=== PATIENT | female | born 1970 | race American Indian/Alaskan Native ===

== ENCOUNTER 2017-02-03 13:55 | Outpatient (CLI) | payer MEDICARE, OTHER ==
--- NOTE | 2017-02-04 08:34 | Mammography Report ---
BILATERAL DIGITAL SCREENING MAMMOGRAM : 02/03/17 13:55:00 CLINICAL: Routine screening. COMPARISON:02/15/16 FINDINGS: The breasts are heterogeneously dense, which may obscures small masses. A new right upper irregular focal asymmetry measures approximately 6 cm in maximum dimension. 2 groups of calcifications in the upper-outer right breast has suspicious morphology and require additional imaging. The calcifications are approximately 6-7 cm apart on both views. In addition, a suspicious right axillary lymph node is very dense and measures at least 3.7 cm. The left breast is negative. IMPRESSION: A large right focal asymmetry with suspicious calcifications requiring further workup. BI-RADS CATEGORY: 0 -- Additional Imaging Evaluation Required RECOMMENDATION: Recall for right ML and spot magnification CC and ML views and right breast ultrasound. ACR BI-RADS MAMMOGRAPHIC CODES: 0 = Needs additional imaging evaluation; 1 = Negative; 2 = Benign; 3 = Probably benign; 4 = Suspicious; 5 = Malignant; 6 = Known biopsy-proven malignancy COMMENT: 1. Dense breast tissue, i.e., adenosis, fibrocystic changes, etc., may obscure an underlying neoplasm. 2. Approximately 10% of cancers are not detected with mammography. 3. A negative mammography report should not delay biopsy if a clinically suspicious mass is present. COMMENT: Patient follow-up letters are generated via our [employer] application.
== END 2017-02-03 13:56 | disposition home or self-care (01) ==
LOC: MAMMO 13:55
PROVIDERS: ATTEND Family Medicine Adult Medicine
DX: Z12.31 Encounter for screening mammogram for malignant neoplasm of breast (principal); I12.0 Hypertensive chronic kidney disease with stage 5 chronic kidney disease or end stage renal disease; N18.6 End stage renal disease; D64.9 Anemia, unspecified
CPT/HCPCS: 77067; G0202

== ENCOUNTER 2017-02-10 12:24 | Outpatient (CLI) | payer MEDICARE ==
--- NOTE | 2017-02-10 14:44 | Mammography Report ---
Right mammogram and right breast ultrasound: CC and MLO spot magnification views of the upper-outer breast are performed. 2 areas of pleomorphic calcifications are noted. There are a few scattered other calcifications having less suspicious characteristics. The fibroglandular pattern otherwise appears generally dense but no definable mass or architectural distortion. Ultrasound of the superior breast demonstrates several findings. In the 1:00 the position 6 in meters from the nipple there is a circumscribed somewhat irregular contoured hypoechogenicity measure approximately 9 mm in size. 9 cm on the breast is another irregular hypoechogenicity which is slightly less well-circumscribed measuring 13 mm. The overall tissue characteristics in the upper-outer breast are somewhat heterogeneous with scattered low attenuation densities. This does not appear to represent normal tissue. In the 12:00 location corresponding to the dense mass on the mammogram approximately 13 cm from the nipple there is a well-circumscribed and homogeneously hypoechoic mass measuring 3.5 cm. There is internal flow. Imaging of the axilla demonstrates 3 adjacent hypoechogenic masses. The 2 smaller masses measuring 13 and 22 mm in size no obvious hilum but the more medial mass measuring 3.2 cm appears to have a normal architectural structure. Impressions: 1. The mammographic findings are highly suspicious for both abnormal parenchymal tissue as well as pleomorphic calcifications. 2. Multiple suspicious focal breast masses. 3. Markedly enlarged and suspicious axillary tail mass and to suspicious a third lymph nodes. Recommendation: Biopsy of breast nodule 9 cm from the nipple in the 1 o'clock location; biopsy of axillary tail mass; biopsy of one suspicious axillary lymph node. An MRI scan may avoid the need for multiple biopsies. The patient has been informed of the findings and recommendations and instructed to contact you. BI-RADS CATEGORY: 5 = Malignant ACR BI-RADS MAMMOGRAPHIC CODES: 0 = Needs additional imaging evaluation; 1 = Negative; 2 = Benign; 3 = Probably benign; 4 = Suspicious; 5 = Malignant; 6 = Known biopsy-proven malignancy COMMENT: 1. Dense breast tissue, i.e., adenosis, fibrocystic changes, etc., may obscure an underlying neoplasm. 2. Approximately 10% of cancers are not detected with mammography. 3. A negative mammography report should not delay biopsy if a clinically suspicious mass is present.
== END 2017-02-10 12:25 | disposition home or self-care (01) ==
LOC: MAMMO 12:24
PROVIDERS: ATTEND Family Medicine Adult Medicine
DX: N63 Unspecified lump in breast (principal); R92.1 Mammographic calcification found on diagnostic imaging of breast; I12.0 Hypertensive chronic kidney disease with stage 5 chronic kidney disease or end stage renal disease; N18.6 End stage renal disease; D63.1 Anemia in chronic kidney disease
CPT/HCPCS: 76641; G0206

== ENCOUNTER 2017-03-09 08:03 | Outpatient (CLI) | payer MEDICARE ==
--- NOTE | 2017-03-09 14:10 | Mammography Report ---
Stereotactic biopsy of the right breast x2 with specimen radiograph x2. History: Known right breast cancer with 2 additional suspicious lesions seen on recent workup. Procedure and findings: Initially the more posterior of 2 groupings of microcalcifications were localized using stereotactic images. Pre-and post-fire images were obtained. Subsequently, local anesthetic was injected into the skin. Using a 13-gauge vacuum assisted biopsy device, 6 specimens were obtained. The specimen radiograph demonstrated order entry representative microcalcifications in multiple tissue cores. Subsequently, the same procedure was performed in the more anterior of the 2 areas of calcifications. Adequate tissue cores were obtained and the specimen radiograph also demonstrates order entry representative microcalcifications in multiple tissue cores. A biopsy clip was placed in the breast at the site of the each biopsy. The patient tolerated the procedure well clinically. Hemostasis was accomplished by direct compression, and a pressure dressing was placed. The patient was discharged in satisfactory condition with no evidence of breast hematoma.
--- NOTE | 2017-03-09 14:12 | Mammography Report ---
Postbiopsy right mammogram for clip placement x2. Findings: 2 views of the right breast demonstrate concordant placement of 2 different biopsy clips both anterior and posteriorly in the left breast. These are located lateral to a previously placed biopsy clip from a previous ultrasound guided biopsy. Incidental note is made of marked skin thickening which has developed since the previous mammogram on February 17.
== END 2017-03-09 08:04 | disposition home or self-care (01) ==
LOC: SPVWC 08:03
PROVIDERS: ATTEND Surgery
DX: C50.411 Malignant neoplasm of upper-outer quadrant of right female breast (principal); R92.1 Mammographic calcification found on diagnostic imaging of breast
CPT/HCPCS: 19081; 19082; 88305; A4648; G0206; 88361

== ENCOUNTER 2017-03-10 07:47 | Outpatient (CLI) | payer MEDICARE ==
--- NOTE | 2017-03-11 08:20 | PET Report ---
PET/CT:03/10/17 07:47:00 CLINICAL: Breast cancer initial staging. RADIOPHARMACEUTICAL: 13.6mCi F18-FDG. COMPARISON: None. TECHNIQUE- Following intravenous injection of F-18 FDG and an approximately 60 minute uptake period, CT and PET images from the mid skull to the upper thighs were acquired with the patient in the fasted state. No contrast was administered. The CT protocol used for this PET CT study is designed for attenuation correction and anatomic localization of PET abnormalities. This refueling ramp attendant CT is not desired to produce and cannot replace, aslac-el-yth-art diagnostic CT scans with specific imaging protocols for different body parts and indications. Plasma glucose at the time of this test: 111g/dl. The standardized uptake values (SUV) are normalized to patient body weight and indicate the highest activity concentration (SUV max) in a given disease site. FINDINGS: Brain--Physiologic FDG uptake in the visualized regions of the brain. Neck--Physiologic FDG uptake . Chest--Physiologic FDG uptake in mediastinal blood pool and myocardium. An FDG avid right breast mass measures approximately 5.0 x 3.5 x 3.5 cm with SUV 7.8. Three biopsy clips in the right breast. Moderate minimally FDG avid (SUV 2.9) skin thickening of the right breast. Lungs--No abnormal uptake. No pulmonary nodule or mass. Pleura/pericardium--No abnormal uptake. Thoracic nodes--FDG avid right axillary lymphadenopathy with at least six enlarged right axillary lymph nodes. A level I lymph node contains a biopsy clip and measures 4.0 x 3.2 cm with SUV 10.8. Hepatobiliary--No abnormal uptake. Liver background SUV mean, as a reference for comparing FDG studies, is 4.8 . No liver mass. Spleen--No abnormal uptake. Pancreas--No abnormal uptake. Adrenal Glands--No abnormal uptake. Kidneys/Ureters/Bladder--No abnormal uptake. Abdominopelvic Nodes--No abnormal uptake. Bowel/Peritoneum/Mesentery--No abnormal uptake. Pelvic organs--No abnormal uptake. Bones/Soft Tissues--Diffuse FDG uptake consistent with marrow stimulation. No suspicious bone lesions. Other findings: Peritoneal dialysis catheter and a large volume of intraperitoneal dialysate. IMPRESSION- 1. Multicentric right breast cancer with right axillary lorena metastasis. 2. No evidence of pulmonary, hepatic or skeletal metastasis.
== END 2017-03-10 07:48 | disposition home or self-care (01) ==
LOC: PET 07:47
PROVIDERS: ATTEND Surgery
DX: C79.89 Secondary malignant neoplasm of other specified sites (principal); C50.411 Malignant neoplasm of upper-outer quadrant of right female breast; I12.0 Hypertensive chronic kidney disease with stage 5 chronic kidney disease or end stage renal disease; N18.6 End stage renal disease; D63.1 Anemia in chronic kidney disease; Z99.2 Dependence on renal dialysis; Z79.899 Other long term (current) drug therapy
CPT/HCPCS: 78815; 82962; A9552

== ENCOUNTER 2017-07-19 09:26 | Outpatient (CLI) | payer MEDICARE ==
--- NOTE | 2017-07-19 11:58 | Mammography Report ---
RIGHT DIGITAL DIAGNOSTIC MAMMOGRAM with CAD: 07/19/17 09:26:00 CLINICAL: Right breast cancer status post chemotherapy. COMPARISON:03/09/17 FINDINGS: Three biopsy clips in the upper outer quadrant corresponds to known cancer. Subtle residual irregular asymmetry in the area of the clips on the lateral view measures approximately 7 x 4 cm but minimal asymmetry remains on the CC view. Malignant calcifications are unchanged compared to the prior exam. IMPRESSION: Partial response to chemotherapy. BI-RADS CATEGORY: 6--Known Cancer ACR BI-RADS MAMMOGRAPHIC CODES: 0 = Needs additional imaging evaluation; 1 = Negative; 2 = Benign; 3 = Probably benign; 4 = Suspicious; 5 = Malignant; 6 = Known biopsy-proven malignancy COMMENT: 1. Dense breast tissue, i.e., adenosis, fibrocystic changes, etc., may obscure an underlying neoplasm. 2. Approximately 10% of cancers are not detected with mammography. 3. A negative mammography report should not delay biopsy if a clinically suspicious mass is present. COMMENT: Patient follow-up letters are generated by our [employer] application.
== END 2017-07-19 09:27 | disposition home or self-care (01) ==
LOC: SPVWC 09:26
PROVIDERS: ATTEND Surgery
DX: C50.411 Malignant neoplasm of upper-outer quadrant of right female breast (principal)
CPT/HCPCS: G0206-RT

== ENCOUNTER 2017-07-27 05:59 | Observation (INO) | payer MEDICARE, OTHER ==
[2017-07-27] MEDS ORDERED: NACL BACTERIOSTATIC INFILTRATI ONE (06:47)
[2017-07-27] MEDS ORDERED: PEPCID PO NR (07:00)
[2017-07-27] MEDS ORDERED: NACL 0.9% 1000 ML 1,000 ML IV SCH (07:00)
[2017-07-27] MEDS ORDERED: NEURONTIN PO NR (07:00)
[2017-07-27] MEDS ORDERED: VERSED IV NR (07:00)
[2017-07-27 07:15] LABS: Basophils % (Auto) 0.9 % (0.0-1.8); Eosinophils % (Auto) 4.4 % (0.0-4.3); Hematocrit 33.5 % (30.3-42.9); Mean Corpuscular HGB Conc 33 % (30-34); Mean Corpuscular Hemoglobin 30 pg (28-32); Mean Corpuscular Volume 92 fl (79-97); Platelet Count 263 K/mm3 (140-440); Red Blood Count 3.63 M/mm3 (3.65-5.03); Red Cell Distribution Width 15.3 % (13.2-15.2); White Blood Count 6.3 K/mm3 (4.5-11.0)
--- NOTE | 2017-07-27 07:15 | Anesthesia Consultation ---
Anesthesia Consult and Med Hx Date of service: 07/27/17 - Airway Anesthetic Teeth Evaluation: Good ROM Head & Neck: Adequate Mental/Hyoid Distance: Adequate Mallampati Class: Class II Intubation Access Assessment: Probably Good - Pulmonary Exam CTA: Yes - Cardiac Exam Cardiac Exam: RRR - Pre-Operative Health Status ASA Pre-Surgery Classification: ASA4 Proposed Anesthetic Plan: General Nerve Block: PEC - Pulmonary Hx Smoking: No Hx Sleep Apnea: Yes (NO LONGER USES CPAP) - Cardiovascular System Hx Hypertension: Yes - Central Nervous System CVA: No Hx Psychiatric Problems: No - Gastrointestinal Hx Gastroesophageal Reflux Disease: Yes - Endocrine Hx Renal Disease: Yes (Polycystic ) Hx End Stage Renal Disease: Yes Hx Liver Disease: No Hx Insulin Dependent Diabetes: No - Hematic Hx Anemia: Yes Hx Sickle Cell Disease: Yes (TRAIT) - Other Systems Hx Alcohol Use: No Hx Substance Use: No Hx Cancer: Yes (breast)
--- NOTE | 2017-07-27 07:16 | Anesthesia Day of Surgery ---
Anesthesia Day of Surgery - Day of Surgery Patient Examined: Yes Patient H&P Reviewed: Yes Patient is NPO: Yes
[2017-07-27] MEDS ORDERED: CLONIDINE 1,000 MCG/10 ML VIAL EP ONE (07:24)
[2017-07-27] MEDS ORDERED: MARCAINE 0.5% 30 ML INFILTRATI ONE (07:24)
[2017-07-27] MEDS ORDERED: DECADRON ONE ×2 (07:24→11:05)
[2017-07-27] MEDS ORDERED: DIPRIVAN 10 MG/ML IV ONE (07:28)
[2017-07-27] MEDS ORDERED: XYLOCAINE MPF 2% ONE (07:29)
[2017-07-27] MEDS ORDERED: DILAUDID ONE (07:29)
[2017-07-27] MEDS ORDERED: ZEMURON IV ONE (07:29)
[2017-07-27 07:35] LABS: Calcium 9.6 mg/dL (8.4-10.2); Chloride 95.4 mmol/L (98-107); Potassium 3.4 mmol/L (3.6-5.0)
[2017-07-27] MEDS ORDERED: SUBLIMAZE IV ONE (08:00)
[2017-07-27] MEDS ORDERED: ANCEF/STERILE WATER 2 GM/20 ML IV NR (08:00)
[2017-07-27] MEDS ORDERED: ANCEF IV ONE (09:26)
[2017-07-27] MEDS ORDERED: WATER FOR IRRIG STERILE IR ONE (09:26)
[2017-07-27] MEDS ORDERED: BACITRACIN IR ONE (09:26)
[2017-07-27] MEDS ORDERED: NEO SYNEPHRINE/NS Syringe(OR USE) IV ONE ×2 (09:51→10:22)
[2017-07-27] MEDS ORDERED: ePHEDrine SULFATE ONE (09:58)
[2017-07-27] MEDS ORDERED: ZOFRAN ONE (11:05)
[2017-07-27] MEDS ORDERED: BACITRACIN ONE (11:09)
[2017-07-27] MEDS ORDERED: NACL 0.9% 1000 ML 1,000 ML ONE ×2 (11:41→13:50)
--- NOTE | 2017-07-27 12:12 | Short Stay Summary ---
Short Stay Documentation Date of service: 07/27/17 - History H&P: obtained from office - Allergies and Medications Current Medications: Allergies No Known Allergies Allergy (Verified 07/21/17 11:24) Home Medications Medication Instructions Recorded Confirmed Last Taken Type Cinacalcet [Sensipar] 30 mg PO TID 06/10/14 07/16/14 07/24/17 History Omeprazole 20 mg PO DAILY 06/10/14 07/16/14 07/24/17 History Sevelamer Carbonate [Renvela] 800 mg PO DAILY 06/10/14 07/16/14 07/26/17 History Zolpidem [Ambien] 1 tab PO QHS 06/10/14 07/16/14 07/26/17 History Calcitriol [Rocaltrol] 0.5 mcg PO DAILY 07/21/17 07/27/17 07/26/17 History Ergocalciferol [Vitamin D2] 1 cap PO QWEEK 07/21/17 07/27/17 07/13/17 History Gabapentin [Neurontin] 100 mg PO TID 07/21/17 07/27/17 07/20/17 History Hydrocodon-Acetaminophn 10-325 1 tab PO Q8H PRN 07/21/17 07/27/17 07/20/17 History Active Medications Cefazolin Sodium (Ancef/Sterile Water 2 Gm/20 Ml) 2 gm IV PREOP NR Stop: 07/27/17 23:59 Sodium Chloride (Nacl 0.9% 1000 Ml) 1,000 mls @ 100 mls/hr IV DIRECT BERTO Last Admin: 07/27/17 07:00 Dose: 100 mls/hr Midazolam HCl (Versed) 2 mg IV PREOP NR Stop: 07/27/17 23:59 Last Admin: 07/27/17 07:34 Dose: 2 mg - Brief post op/procedure progress note Date of procedure: 07/27/17 Pre-op diagnosis: Multicentric right breast cancer Post-op diagnosis: same Procedure: Left total mastectomy and right total mastectomy with SLNB Anesthesia: GETA Findings: Left total mastectomy; right total mastectomy with radiograph specimen with 3 clips present and 3 SLNs and negative for malignancy Surgeon: NICO MUNOZ Gauge Controller: FER JAMA Estimated blood loss: minimal Pathology: list (bilateral total mastectomy and right SLNB) Specimen disposition: to lab Condition: stable - Disposition Condition at discharge: Good Disposition: DC/TX-02 SHRT-TRM GEN HOSP IP Short Stay Discharge Plan Activity: other (no heavy lifting) Diet: diabetic Wound: other (keep incision clean and dry; may shower in 72 hours; no baths, pools or lakes) Follow up with: RYLIE BOWERS MD [Primary Care Provider] - 7 Days NICO MUNOZ MD [Staff Physician] - 7 Days
[2017-07-27] MEDS ORDERED: ROBINUL ONE (12:16)
[2017-07-27] MEDS ORDERED: QUELICIN ONE (12:16)
--- NOTE | 2017-07-27 12:21 | Operative Report ---
Operative Report Operative Report: Date of Service: July 27, 2017 Preoperative diagnosis: Multicentric right breast cancer of the upper outer and upper inner quadrant Postoperative diagnosis: Same Procedure: Left total mastectomy and right total mastectomy with sentinel lymph node biopsy Surgeon: Dyana Mckinley M.D. Asst.: Felisha Reilly MD Anesthesia: Gen. Findings: Three right breast clips and mass present within right total mastectomy. 3 sentinel lymph nodes identified and negative for malignancy on frozen section of pathology Complications: None Drains: 2 19 Fr Estimated blood loss: Minimal Disposition: PACU in good condition Indications for operative procedure: This is a 46-year-old lady with multicentric Stage II right breast cancer of the upper outer and upper inner quadrant, IDCA [id number] triple negative. Recommendations were to proceed with right mastectomy and patient wished to proceed with a right total mastectomy and prophylactic left total masectomy and immediate plastic reconstructive surgery of bilateral tissue expanders by Dr. Adkins. Procedure in detail: Anesthesia placed right pectoral muscle block prior to going to the operating room. The patient was taken to the operating room and was placed supine. Gen. anesthesia was administered. The right nipple was injected with radioisotope. Bilateral breast were prepped and draped in the normal postoperative fashion. Timeout was performed. Typical mastectomy incision markings were made . Attention was taken towards the left breast first. A skin incision was made with a 10 blade knife and dissection taken down to the subcutaneous tissues. First began raising of the superior flap to the level of the clavicle superiorly and posteriorly to the pectoralis muscle. Followed by raising of the medial flap to the level of the sternum and posteriorly to the pectoralis muscle. Followed by raising of the lateral flap to the level of the latissimus dorsi muscle and taken down posteriorly. Followed by raising of the inferior flap to the level of the inframammary fold taken posterior to the pectoralis muscle. The mastectomy/breast was removed from the pectoralis muscle without incident. The specimen was appropriately marked and sent to pathology. Hemostasis was obtained with the bovie cautery. Dr. Adkins then proceeded with tissue quill winder placement. Attention was taken towards the right breast. A gamma probe was inserted into the axilla to identify the sentinel lymph node location. A skin incision was made with a 10 blade knife and dissection taken down to the subcutaneous tissues. First began raising of the superior flap to the level of the clavicle superiorly and posteriorly to the pectoralis muscle. The port was noted and not encountered. Followed by raising of the medial flap to the level of the sternum and posteriorly to the pectoralis muscle. Followed by raising of the lateral flap to the level of the latissimus dorsi muscle and taken down posteriorly. The gamma probe was inserted into the axilla and 3 sentinel lymph nodes were identified, all remaining counts were less than 10% of the highest SLN. Lymph nodes were sent to pathology with findings negative for malignancy noted on frozen section and first SLN with reactive treatment effect. Then proceeded with raising of the inferior flap to the level of the inframammary fold taken posterior to the pectoralis muscle. The mastectomy/breast was removed from the pectoralis muscle without incident. The specimen was appropriately marked and sent to radiology with findings of 3 breast clips present and sent to pathology. Hemostasis was obtained with the bovie cautery. Dr. Adkins then proceeded with tissue quill winder placement.
[2017-07-27] MEDS ORDERED: SODIUM CHLORIDE FLUSH SYRINGE 10 ML IV PRN (12:22)
[2017-07-27] MEDS ORDERED: BENADRYL PO PRN (12:22)
[2017-07-27] MEDS ORDERED: PERCOCET 5/325 PO PRN (12:22)
[2017-07-27] MEDS ORDERED: ZOFRAN IV PRN (12:22)
[2017-07-27] MEDS ORDERED: REGLAN PO PRN (12:22)
[2017-07-27] MEDS ORDERED: TYLENOL PO PRN (12:22)
--- NOTE | 2017-07-27 12:32 | Operative Report ---
PREOPERATIVE DIAGNOSES: 1. Right breast cancer. 2. Status post bilateral mastectomies. POSTOPERATIVE DIAGNOSES: 1. Right breast cancer. 2. Status post bilateral mastectomies. PROCEDURE: Bilateral tissue office support clerk breast reconstruction. SURGEON: Miles Adkins M.D. TOY ELECTRIC TRAIN REPAIRER: Dr. Dyana Mckinley and Dr. Solano. FINDINGS: Implants are [place] 600 mL high profile Artura implants, serial number [id number] and [id number], reference number TEXP 140RH. Implants filled intraoperatively to 105 mL bilaterally. DESCRIPTION OF PROCEDURE: The patient was brought into the operating room and placed on the table in supine position. Following administration of general anesthesia, bilateral breasts were prepped with a Betadine solution and draped in the usual sterile manner. Following bilateral mastectomies and right axillary sentinel lymph node biopsies attention was directed to the pectoralis major muscle, which was divided in the direction of its fibers followed by creation of a subpectoral pocket, extended to its origins and laterally, transitioned deep to the serratus anterior muscle to permit placement of the 600 mL [place] implants. The pectoralis major muscle was closed with running 2-0 Monocryl sutures. A 10 mm ASHLEY drain was placed and skin closure was performed using interrupted and running subcuticular 2-0 Monocryl sutures. Mastisol, Steri-Strips, and sterile dressings applied. The patient tolerated the procedure well and returned to recovery room in stable condition. JOB# [id number] FTW/RIGO
[2017-07-27] MEDS ORDERED: DILAUDID IV PRN (12:55)
[2017-07-27] MEDS ORDERED: LACTATED RINGERS 1,000 ML IV SCH (13:00)
--- NOTE | 2017-07-27 15:10 | Mammography Report ---
SPECIMEN RADIOGRAPH RIGHT BREAST: 07/27/17 05:59:00 CLINICAL: Mastectomy specimen FINDINGS: Three biopsy clips are identified within the specimen. For more detailed, please refer to the operative report.
[2017-07-27] MEDS: MORPHINE IV PRN ×2 (17:02→23:08)
--- NOTE | 2017-07-27 20:43 | Consultation ---
History of Present Illness - Reason for Consult Consult date: 07/27/17 medical management Requesting physician: NICO MUNOZ - History of Present Illness S/p bilateral total mastectomy and right SLNB.Postop patient doing well. Patient fixing her own peritoneal dialysis bag. at bedside. No pain. No shortness of breath. Doing well.) Past History Past Medical History: cancer (breast cancer right), ESRD, GERD Medications and Allergies Allergies Allergy/AdvReac Type Severity Reaction Status Date / Time No Known Allergies Allergy Verified 07/21/17 11:24 Home Medications Medication Instructions Recorded Confirmed Last Taken Type Cinacalcet [Sensipar] 30 mg PO TID 06/10/14 07/16/14 07/24/17 History Omeprazole 20 mg PO DAILY 06/10/14 07/16/14 07/24/17 History Sevelamer Carbonate [Renvela] 800 mg PO DAILY 06/10/14 07/16/14 07/26/17 History Zolpidem [Ambien] 1 tab PO QHS 06/10/14 07/16/14 07/26/17 History Calcitriol [Rocaltrol] 0.5 mcg PO DAILY 07/21/17 07/27/17 07/26/17 History Ergocalciferol [Vitamin D2] 1 cap PO QWEEK 07/21/17 07/27/17 07/13/17 History Gabapentin [Neurontin] 100 mg PO TID 07/21/17 07/27/17 07/20/17 History Hydrocodon-Acetaminophn 10-325 1 tab PO Q8H PRN 07/21/17 07/27/17 07/20/17 History Active Meds: Active Medications Acetaminophen (Tylenol) 650 mg PO Q6H PRN PRN Reason: Pain MILD(1-3)/Fever >100.5/HAIR Cefazolin Sodium (Ancef/Sterile Water 2 Gm/20 Ml) 2 gm IV PREOP NR Stop: 07/27/17 23:59 Cephalexin (Keflex) 500 mg PO Q12HR BERTO Diphenhydramine HCl (Benadryl) 25 mg PO Q8H PRN PRN Reason: Itching Last Admin: 07/27/17 17:07 Dose: 25 mg Docusate Sodium (Colace) 100 mg PO BID BERTO Sodium Chloride (Nacl 0.9% 1000 Ml) 1,000 mls @ 100 mls/hr IV DIRECT BERTO Last Admin: 07/27/17 07:00 Dose: 100 mls/hr Lactated Ringer's (Lactated Ringers) 1,000 mls @ 125 mls/hr IV DIRECT BERTO Metoclopramide HCl (Reglan) 10 mg PO Q6H PRN PRN Reason: Nausea And Vomiting Last Admin: 07/27/17 17:07 Dose: 10 mg Midazolam HCl (Versed) 2 mg IV PREOP NR Stop: 07/27/17 23:59 Last Admin: 07/27/17 07:34 Dose: 2 mg Morphine Sulfate (Morphine) 2 mg IV Q4H PRN PRN Reason: Pain, Moderate (4-6) Last Admin: 07/27/17 17:02 Dose: 2 mg Ondansetron HCl (Zofran) 4 mg IV Q8H PRN PRN Reason: N/V unrelieved by Reglan Oxycodone/Acetaminophen (Percocet 5/325) 1 tab PO Q6H PRN PRN Reason: Pain, Moderate (4-6) Sodium Chloride (Sodium Chloride Flush Syringe 10 Ml) 10 ml IV PRN PRN PRN Reason: LINE FLUSH Review of Systems All systems: negative Exam - Constitutional Vitals: Temp Pulse Resp BP Pulse Ox 97.9 F 75 20 97/51 100 07/27/17 17:55 07/27/17 17:55 07/27/17 17:55 07/27/17 17:55 07/27/17 14:32 General appearance: Present: no acute distress, well-nourished - EENT Eyes: Present: PERRL ENT: hearing intact, clear oral mucosa - Neck Neck: Present: supple, normal ROM - Respiratory Respiratory effort: normal Respiratory: bilateral: CTA - Cardiovascular Heart rate: 76 Rhythm: regular Heart Sounds: Present: S1 & S2. Absent: rub, click - Extremities Extremities: no ischemia, pulses intact, pulses symmetrical, No edema Peripheral Pulses: within normal limits - Abdominal General gastrointestinal: Present: soft, non-tender, non-distended, normal bowel sounds Female genitourinary: Present: normal - Rectal Rectal Exam: deferred - Integumentary Integumentary: Present: clear, warm, dry - Musculoskeletal Musculoskeletal: gait normal, strength equal bilaterally - Psychiatric Psychiatric: appropriate mood/affect, intact judgment & insight - Neurologic Neurologic: CNII-XII intact, moves all extremities - Allied Health Allied health notes reviewed: nursing, case management Results - Labs CBC & Chem 7: 07/27/17 06:50 07/27/17 06:50 Labs: Abnormal lab results 07/27/17 07/27/17 07/27/17 Range/Units 06:50 06:50 06:50 RBC 3.63 L (3.65-5.03) M/mm3 RDW 15.3 H (13.2-15.2) % Lymph % (Auto) 12.9 L (13.4-35.0) % Eos % (Auto) 4.4 H (0.0-4.3) % Lymph # 0.8 L (1.2-5.4) K/mm3 Seg Neutrophils % 75.1 H (40.0-70.0) % Potassium 3.4 L (3.6-5.0) mmol/L Chloride 95.4 L (98-107) mmol/L BUN 61 H (7-17) mg/dL Creatinine 15.0 H (0.7-1.2) mg/dL HCG, Quant 6.71 H (0-4) mIU/mL 07/27/17 Range/Units 09:06 RBC (3.65-5.03) M/mm3 RDW (13.2-15.2) % Lymph % (Auto) (13.4-35.0) % Eos % (Auto) (0.0-4.3) % Lymph # (1.2-5.4) K/mm3 Seg Neutrophils % (40.0-70.0) % Potassium (3.6-5.0) mmol/L Chloride (98-107) mmol/L BUN (7-17) mg/dL Creatinine (0.7-1.2) mg/dL HCG, Quant 5.68 H (0-4) mIU/mL Assessment and Plan - Patient Problems (1) End-stage renal disease needing dialysis Current Visit: Yes Status: Chronic Plan to address problem: patient to continue Peritoneal dialysis. Patient comfortable with doing her own peritoneal dialysis. is also well aware of doing the peritoneal dialysis. (2) ESRD (end stage renal disease) Current Visit: Yes Status: Chronic Plan to address problem: continue calcitriol sevelamer and Sensipar. (3) Hypokalemia Current Visit: Yes Status: Acute Plan to address problem: supplemented. (4) Gastroesophageal reflux disease Current Visit: Yes Status: Chronic Qualifiers: Esophagitis presence: without esophagitis Qualified Code(s): K21.9 - Gastro -esophageal reflux disease without esophagitis Plan to address problem: continue PPIs (5) DVT prophylaxis Current Visit: Yes Status: Chronic Plan to address problem: SCDs only
[2017-07-27] MEDS: KEFLEX PO SCH (21:00)
[2017-07-27] MEDS: COLACE PO SCH (21:00)
--- NOTE | 2017-07-28 08:30 | Progress Note ---
Assessment and Plan Assessment and plan: --Bilateral mastectomy; management per surgery --Hypokalemia corrected --End-stage renal disease on peritoneal dialysis --Gastroesophageal reflux disease continue Protonix --DVT prophylaxis with SCDs Continue current management Patient is medically stable, Patient needs to see primary care physician for her medical needs I will sign off, thank you for this consultation History Interval history: Patient seen and examined medical records reviewed Patient feels better no new complaints vital signs reviewed Hospitalist Physical - Constitutional Vitals: Temp Pulse Resp BP Pulse Ox 98.3 F 98 H 18 85/46 100 07/28/17 06:20 07/28/17 06:20 07/28/17 06:20 07/28/17 06:20 07/28/17 06:20 General appearance: Present: no acute distress, well-nourished - EENT Eyes: Present: PERRL, EOM intact - Neck Neck: Present: supple, normal ROM - Respiratory Respiratory effort: normal Respiratory: negative: rales, rhonchi, wheezing - Cardiovascular Rhythm: regular Heart Sounds: Present: S1 & S2 - Extremities Extremities: no ischemia, No edema - Abdominal General gastrointestinal: soft, non-tender, non-distended, normal bowel sounds - Integumentary Integumentary: Present: clear, warm - Psychiatric Psychiatric: appropriate mood/affect, cooperative - Neurologic Neurologic: CNII-XII intact, moves all extremities Results - Labs CBC & Chem 7: 07/27/17 06:50 07/27/17 06:50 Labs: Laboratory Last Values WBC 6.3 K/mm3 (4.5-11.0) 07/27/17 06:50 RBC 3.63 M/mm3 (3.65-5.03) L 07/27/17 06:50 Hgb 11.0 gm/dl (10.1-14.3) 07/27/17 06:50 Hct 33.5 % (30.3-42.9) 07/27/17 06:50 MCV 92 fl (79-97) 07/27/17 06:50 MCH 30 pg (28-32) 07/27/17 06:50 MCHC 33 % (30-34) 07/27/17 06:50 RDW 15.3 % (13.2-15.2) H 07/27/17 06:50 Plt Count 263 K/mm3 (140-440) 07/27/17 06:50 Lymph % (Auto) 12.9 % (13.4-35.0) L 07/27/17 06:50 [place] % (Auto) 6.7 % (0.0-7.3) 07/27/17 06:50 Eos % (Auto) 4.4 % (0.0-4.3) H 07/27/17 06:50 Baso % (Auto) 0.9 % (0.0-1.8) 07/27/17 06:50 Lymph # 0.8 K/mm3 (1.2-5.4) L 07/27/17 06:50 [place] # 0.4 K/mm3 (0.0-0.8) 07/27/17 06:50 Eos # 0.3 K/mm3 (0.0-0.4) 07/27/17 06:50 Baso # 0.1 K/mm3 (0.0-0.1) 07/27/17 06:50 Seg Neutrophils % 75.1 % (40.0-70.0) H 07/27/17 06:50 Seg Neutrophils # 4.7 K/mm3 (1.8-7.7) 07/27/17 06:50 Sodium 142 mmol/L (137-145) 07/27/17 06:50 Potassium 3.4 mmol/L (3.6-5.0) L 07/27/17 06:50 Chloride 95.4 mmol/L (98-107) L 07/27/17 06:50 Carbon Dioxide 26 mmol/L (22-30) 07/27/17 06:50 Anion Gap 24 mmol/L 07/27/17 06:50 BUN 61 mg/dL (7-17) H 07/27/17 06:50 Creatinine 15.0 mg/dL (0.7-1.2) H 07/27/17 06:50 Estimated GFR 3 ml/min 07/27/17 06:50 BUN/Creatinine Ratio 4 % 07/27/17 06:50 Glucose 75 mg/dL (65-100) 07/27/17 06:50 Calcium 9.6 mg/dL (8.4-10.2) 07/27/17 06:50 HCG, Qual TNR 07/27/17 06:50 HCG, Quant 5.68 mIU/mL (0-4) H 07/27/17 09:06
--- NOTE | 2017-07-28 08:51 | Progress Note ---
Assessment and Plan 46 yo F s/p Left total mastectomy and right total mastectomy with sentinel lymph node biopsy, with bilateral reconstruction with expanders. POD 1 1. PO pain control 2. reg diet 3. OOB/ambulate 4. PO keflex 5. Ashley drain - monitor output, teaching performed 6. will discharge to home Subjective Date of service: 07/28/17 Narrative: Pt seen and examined. No complaints. Pain is controlled. Tolerating diet. No overnight events or acute complaints. Patient states ASHLEY drain teaching was done. Objective Vital Signs - 12hr 07/27/17 07/28/17 07/28/17 21:55 01:43 06:20 Temperature 97.6 F 97.6 F 98.3 F Pulse Rate 82 88 98 H Respiratory 20 16 18 Rate Blood Pressure 113/76 104/56 85/46 [Left] O2 Sat by Pulse 100 Oximetry - General physical appearance Narrative Exam: Gen: AAOx3. NAD CV/Chest: S1, S2+. Chest wall dressing c/d/i. ASHLEY drains x2 serosanguenous. resp: CTAB, no w/r/r I/Os: ASHLEY R: 127cc/24 hours ASHLEY L: 180cc/24 hours - Labs 07/27/17 06:50 07/27/17 06:50
--- NOTE | 2017-07-28 08:56 | Discharge Summary ---
Providers - Providers Date of Admission: 07/27/17 12:22 Date of discharge: 07/28/17 Attending physician: NICO MUNOZ 07/27/17 16:34 Consult to Physician [CONS] Urgent Consulting Provider: Reason For Exam: peritoneal dialysis s/t right mastectomy Place consult to:: hospitalist Notified:: call placed Primary care physician: RYLIE BOWERS Hospitalization Reason for admission: surgery for breast cancer Condition: Good Procedures: Left total mastectomy and right total mastectomy with sentinel lymph node biopsy and bilateral reconstruction Hospital course: Patient underwent the stated procedure and post operative course was uncomplicated. She was discharged to home in stable condition. Disposition: DC-01 TO HOME OR SELFCARE Time spent for discharge: 20 minutes - Discharge Diagnoses (1) Breast cancer Status: Acute Core Measure Documentation - Palliative Care Palliative Care/ Comfort Measures: Not Applicable - Core Measures Any of the following diagnoses?: none Exam - Physical Exam Narrative exam: Gen: AAOx3. NAD CV/Chest: S1, s2+. Chest wall dressing c/d/i. ASHLEY drain x2 serosanguenous Resp: CTAB, no w/w/r Ext: no c/c/e - Constitutional Vitals: Temp Pulse Resp BP Pulse Ox 98.3 F 98 H 18 85/46 100 07/28/17 06:20 07/28/17 06:20 07/28/17 06:20 07/28/17 06:20 07/28/17 06:20 Plan Activity: no restrictions Diet: regular Wound: open to air, keep clean and dry, other (may remove outer dressing and shower in 24 hours. Pat incisions dry. Record ASHLEY drain output as instructed) Follow up with: NICO MUNOZ MD [Staff Physician] - 7 Days RYLIE BOWERS MD [Primary Care Provider] - 7 Days JENNIE FOUNTAIN MD [Staff Physician] - 7 Days KAYLA MIXON JR, MD [Staff Physician] - 08/01/17 (TuesdayAug 01)
[2017-07-28] MEDS: COLACE PO SCH (10:26)
[2017-07-28] MEDS: KEFLEX PO SCH (10:26)
[2017-07-28 10:46] VITALS: BP 89/37
--- NOTE | 2017-07-28 16:19 | Progress Note ---
Hospitalist Physical - Constitutional Vitals: Temp Pulse Resp BP Pulse Ox 98.3 F 65 18 89/37 100 07/28/17 09:30 07/28/17 09:30 07/28/17 09:30 07/28/17 09:30 07/28/17 06:20 General appearance: Present: no acute distress, well-nourished Results - Labs CBC & Chem 7: 07/27/17 06:50 07/27/17 06:50 Labs: Laboratory Last Values WBC 6.3 K/mm3 (4.5-11.0) 07/27/17 06:50 RBC 3.63 M/mm3 (3.65-5.03) L 07/27/17 06:50 Hgb 11.0 gm/dl (10.1-14.3) 07/27/17 06:50 Hct 33.5 % (30.3-42.9) 07/27/17 06:50 MCV 92 fl (79-97) 07/27/17 06:50 MCH 30 pg (28-32) 07/27/17 06:50 MCHC 33 % (30-34) 07/27/17 06:50 RDW 15.3 % (13.2-15.2) H 07/27/17 06:50 Plt Count 263 K/mm3 (140-440) 07/27/17 06:50 Lymph % (Auto) 12.9 % (13.4-35.0) L 07/27/17 06:50 [place] % (Auto) 6.7 % (0.0-7.3) 07/27/17 06:50 Eos % (Auto) 4.4 % (0.0-4.3) H 07/27/17 06:50 Baso % (Auto) 0.9 % (0.0-1.8) 07/27/17 06:50 Lymph # 0.8 K/mm3 (1.2-5.4) L 07/27/17 06:50 [place] # 0.4 K/mm3 (0.0-0.8) 07/27/17 06:50 Eos # 0.3 K/mm3 (0.0-0.4) 07/27/17 06:50 Baso # 0.1 K/mm3 (0.0-0.1) 07/27/17 06:50 Seg Neutrophils % 75.1 % (40.0-70.0) H 07/27/17 06:50 Seg Neutrophils # 4.7 K/mm3 (1.8-7.7) 07/27/17 06:50 Sodium 142 mmol/L (137-145) 07/27/17 06:50 Potassium 3.4 mmol/L (3.6-5.0) L 07/27/17 06:50 Chloride 95.4 mmol/L (98-107) L 07/27/17 06:50 Carbon Dioxide 26 mmol/L (22-30) 07/27/17 06:50 Anion Gap 24 mmol/L 07/27/17 06:50 BUN 61 mg/dL (7-17) H 07/27/17 06:50 Creatinine 15.0 mg/dL (0.7-1.2) H 07/27/17 06:50 Estimated GFR 3 ml/min 07/27/17 06:50 BUN/Creatinine Ratio 4 % 07/27/17 06:50 Glucose 75 mg/dL (65-100) 07/27/17 06:50 Calcium 9.6 mg/dL (8.4-10.2) 07/27/17 06:50 HCG, Qual TNR 07/27/17 06:50 HCG, Quant 5.68 mIU/mL (0-4) H 07/27/17 09:06
== END 2017-07-28 11:30 | disposition home or self-care (01) ==
LOC: OR 05:59 → OB 12:22
PROVIDERS: ADMIT Surgery; ATTEND Surgery
DX: C50.411 Malignant neoplasm of upper-outer quadrant of right female breast (principal); C50.211 Malignant neoplasm of upper-inner quadrant of right female breast; C50.811 Malignant neoplasm of overlapping sites of right female breast; R92.1 Mammographic calcification found on diagnostic imaging of breast; K21.9 Gastro-esophageal reflux disease without esophagitis; N18.6 End stage renal disease; E87.6 Hypokalemia; Z80.3 Family history of malignant neoplasm of breast; Z79.899 Other long term (current) drug therapy; Z99.2 Dependence on renal dialysis
CPT/HCPCS: 19303; 19357; 36415; 38525; 64450; 76098; 78800; 80048; 84702; 85025; 88307; 88309; 88331; 88333; 88342; 88361; 94760; 96374; 96375; 96376; A9541; C1789; G0378; J0330; J0690; J0735; J1100; J1170; J2250; J2270; J2370; J2405; J2704; J3010; J7030; J7120; 88341

== ENCOUNTER 2018-03-27 06:06 | Day surgery (SDC) | payer MEDICARE, OTHER ==
[2018-03-27] MEDS ORDERED: NACL BACTERIOSTATIC INFILTRATI ONE (06:43)
[2018-03-27] MEDS ORDERED: NACL 0.9% 1000 ML 1,000 ML ONE (06:43)
[2018-03-27] MEDS ORDERED: ANCEF/STERILE WATER 2 GM/20 ML IV NR (07:00)
[2018-03-27 07:04] LABS: Basophils % (Auto) 0.7 % (0.0-1.8); Eosinophils # (Auto) 0.1 K/mm3 (0.0-0.4); Eosinophils % (Auto) 3.2 % (0.0-4.3); Hemoglobin 9.2 gm/dl (10.1-14.3); Lymphocytes # (Auto) 0.8 K/mm3 (1.2-5.4); Lymphocytes % (Auto) 17.7 % (13.4-35.0); Mean Corpuscular HGB Conc 34 % (30-34); Mean Corpuscular Hemoglobin 33 pg (28-32); Mean Corpuscular Volume 98 fl (79-97); Monocytes # (Auto) 0.7 K/mm3 (0.0-0.8); Monocytes % (Auto) 15.8 % (0.0-7.3); Platelet Count 237 K/mm3 (140-440); Red Blood Count 2.75 M/mm3 (3.65-5.03); Red Cell Distribution Width 17.3 % (13.2-15.2)
[2018-03-27 07:20] LABS: Albumin 3.7 g/dL (3.9-5); BUN/Creatinine Ratio 4; Blood Urea Nitrogen 55 mg/dL (7-17); Calcium 8.8 mg/dL (8.4-10.2); Hemolysis Index 4
[2018-03-27 07:23] LABS: Alanine Aminotransferase < 5 units/L (7-56)
[2018-03-27] MEDS ORDERED: ZOFRAN ONE (07:25)
[2018-03-27] MEDS ORDERED: XYLOCAINE MPF 2% ONE (07:25)
[2018-03-27] MEDS ORDERED: SUBLIMAZE ONE ×2 (07:25→08:58)
[2018-03-27] MEDS ORDERED: REGLAN ONE (07:25)
[2018-03-27] MEDS ORDERED: DIPRIVAN 10 MG/ML IV ONE (07:26)
--- NOTE | 2018-03-27 07:33 | Anesthesia Day of Surgery ---
Anesthesia Day of Surgery - Day of Surgery Patient Examined: Yes Patient H&P Reviewed: Yes Patient is NPO: Yes
--- NOTE | 2018-03-27 07:33 | Anesthesia Consultation ---
Anesthesia Consult and Med Hx Date of service: 03/27/18 - Airway Anesthetic Teeth Evaluation: Good ROM Head & Neck: Adequate Mental/Hyoid Distance: Adequate Mallampati Class: Class II Intubation Access Assessment: Good - Pulmonary Exam CTA: Yes - Cardiac Exam Cardiac Exam: RRR - Pre-Operative Health Status ASA Pre-Surgery Classification: ASA2, ASA3 Proposed Anesthetic Plan: General - Pulmonary Hx Smoking: No Hx Asthma: No COPD: No Hx Pneumonia: No Hx Sleep Apnea: Yes (NO LONGER USES CPAP) - Cardiovascular System Hx Hypertension: Yes - Central Nervous System CVA: No Hx Psychiatric Problems: No - Gastrointestinal Hx Gastroesophageal Reflux Disease: Yes - Endocrine Hx Renal Disease: Yes (Polycystic ) Hx End Stage Renal Disease: Yes Hx Liver Disease: No Hx Insulin Dependent Diabetes: No - Hematic Hx Anemia: Yes Hx Sickle Cell Disease: Yes (TRAIT) - Other Systems Hx Alcohol Use: No Hx Substance Use: No Hx Cancer: Yes (breast)
[2018-03-27] MEDS ORDERED: SUBLIMAZE IV PRN (07:56)
[2018-03-27] MEDS ORDERED: VERSED IV NR (08:00)
[2018-03-27] MEDS ORDERED: NACL 0.9% 1000 ML 1,000 ML IV SCH (08:00)
[2018-03-27] MEDS ORDERED: NACL P/F VIAL (10 ML) 10 ML ONE (08:27)
[2018-03-27] MEDS ORDERED: BACITRACIN ONE (08:28)
[2018-03-27] MEDS ORDERED: BACITRACIN IR ONE (08:51)
[2018-03-27] MEDS ORDERED: NACL P/F VIAL (10 ML) INFILTRATI ONE (08:53)
[2018-03-27] MEDS ORDERED: NACL 0.9% IR ONE (08:53)
[2018-03-27] MEDS ORDERED: DILAUDID ONE (09:20)
--- NOTE | 2018-03-27 11:16 | Operative Report ---
PREOPERATIVE DIAGNOSES: 1. Bilateral acquired breast deformity. 2. Bilateral absence of breasts. 3. History of breast cancer. POSTOPERATIVE DIAGNOSES: 1. Bilateral acquired breast deformity. 2. Bilateral absence of breasts. 3. History of breast cancer. PROCEDURE: 1. Removal of bilateral breast tissue expanders. 2. Bilateral capsulectomies. 3. Placement of bilateral permanent silicone gel breast implants. 4. Removal of Port-A-Cath. SURGEON: Miles Adkins MD MORTUARY BEAUTICIAN: Kevin Guzman CSA DESCRIPTION OF PROCEDURE: The patient brought in to the operating room and placed on the table in supine position. Following administration of general anesthesia, bilateral breasts were prepped with Betadine solution and draped in usual sterile manner. A #10 blade scalpel was used to make an inframammary fold skin incision, deepened through subcutaneous fat and muscle down to the tissue motor tester. Tissue motor tester was removed and sent to pathology as specimen followed by incising of the capsule and excision of a 3-cm wide strip of capsule from the 2 o'clock position to the 10:00 position bilaterally, also sent to pathology using electrocautery. Hemostasis controlled using electrocautery. 450 mL Cocoa moderate profile plus gel implants were placed. Closure performed in layers using interrupted and running subcuticular 2-0 Monocryl sutures followed by Mastisol, Steri-Strips, and a sterile dressing. Attention was then directed to the right chest Port-A-Cath where transverse skin incision was made, deepened through subcutaneous fat down to the port, which was excised and sent to pathology as specimen. Pressure was held for 3 minutes followed by wound closure using interrupted and running subcuticular 2-0 Monocryl sutures. Mastisol, Steri-Strips, and sterile dressings applied. The patient tolerated the procedure well and returned to recovery room in stable condition. JOB# [id number] [id number]/[id number]
[2018-03-27] MEDS ORDERED: PERCOCET 5/325 PO SCH (11:20)
[2018-03-27 11:34] VITALS: BP 119/75
--- NOTE | 2018-03-27 13:09 | Post Anesthesia Evaluation ---
- Post Anesthesia Evaluation Patient Participated: Yes Airway Patent: Yes Stable Respiratory Function: Yes Nausea/Vomiting: No Temp > 96.8F: Yes Pain Manageable: Yes Adequeate Hydration: Yes Anesthesia Complications: No Block Receding Appropriately: Not Applicable Patient on Ventilator: No
== END 2018-03-27 12:12 | disposition home or self-care (01) ==
LOC: OR 06:06
PROVIDERS: ATTEND Plastic Surgery
DX: Z45.812 Encounter for adjustment or removal of left breast implant (principal); Z45.811 Encounter for adjustment or removal of right breast implant; N60.32 Fibrosclerosis of left breast; N60.31 Fibrosclerosis of right breast; N64.89 Other specified disorders of breast; G47.30 Sleep apnea, unspecified; I12.0 Hypertensive chronic kidney disease with stage 5 chronic kidney disease or end stage renal disease; N18.6 End stage renal disease; K21.9 Gastro-esophageal reflux disease without esophagitis; D57.3 Sickle-cell trait; Z98.51 Tubal ligation status; Z99.2 Dependence on renal dialysis; Z79.899 Other long term (current) drug therapy; Z88.1 Allergy status to other antibiotic agents; Z90.13 Acquired absence of bilateral breasts and nipples; Z85.3 Personal history of malignant neoplasm of breast; Z98.890 Other specified postprocedural states; Z80.3 Family history of malignant neoplasm of breast; Z80.9 Family history of malignant neoplasm, unspecified
CPT/HCPCS: 11970; 36415; 36590; 80053; 85025; 88300; 88305; C1789; J0690; J1170; J2250; J2405; J2704; J2765; J3010; J7030; 88302; 88307